=== PATIENT | female | born 1990 | race Caucasian/White ===

== ENCOUNTER 2017-02-15 15:37 | Inpatient (IN) | payer OTHER ==
[~2017-02-15] VITALS: Ht 152.4 cm; Wt 1.8 kg
[2017-02-15] MEDS ORDERED: PRENATAL TABLE1 EACH PO (19:41)
[2017-02-15] MEDS ORDERED: ASPIR 8181 MG PO (19:41)
[2017-02-20] MEDS ORDERED: OXYC1TAB9 PO (13:25)
[2017-02-20] MEDS ORDERED: ALDOMET250 MG PO (13:25)
[2017-02-20] MEDS ORDERED: MIRALAX17 GM PO (13:25)
== END 2017-02-20 16:05 | DRG 766 ==
LOC: LDR 15:37 → OB/GYN 02-16 17:31
PROVIDERS: Obstetrics & Gynecology
PROC: 4A033R1 Measurement of Arterial Saturation, Peripheral, Percutaneous Approach (ICD-10-PCS; 2017-02-16)
PROC: 4A1HXCZ Monitoring of Products of Conception, Cardiac Rate, External Approach (ICD-10-PCS; 2017-02-16)
PROC: 10D00Z1 Extraction of Products of Conception, Low, Open Approach (ICD-10-PCS; principal; 2017-02-16 14:00)
PROC: 30233N1 Transfusion of Nonautologous Red Blood Cells into Peripheral Vein, Percutaneous Approach (ICD-10-PCS; 2017-02-19)
DX: O60.14X2 Preterm labor third trimester with preterm delivery third trimester, fetus 2 (principal); O14.14 Severe pre-eclampsia complicating childbirth; O90.81 Anemia of the puerperium; Z3A.36 36 weeks gestation of pregnancy; Z37.2 Twins, both liveborn